=== PATIENT | female | born 2000 | race Caucasian/White ===

== ENCOUNTER 2025-07-28 06:07 | Inpatient (IN) ==
[2025-07-28] MEDS ORDERED: REGLAN INJ 10 MG VIAL IVP PRN (06:39)
[2025-07-28] MEDS ORDERED: NUBAIN INJ 20 MG AMP IVP PRN (06:39)
[2025-07-28] MEDS ORDERED: ZOFRAN INJ 4 MG VIAL IVP PRN (06:39)
[2025-07-28] MEDS: D5 1/2 NS 1,000 ML 1,000 ML IV SCH (06:45)
[2025-07-28] MEDS: OXYTOCIN 20 UNIT/1,000 ML-NS 20 UNIT/1,000 ML PLAST..BAG IV PRN (07:00)
--- NOTE | 2025-07-28 07:00 | DR.OB ---
OB QUICK NOTE Assessment/Plan (1) Elective induction of labor planned: Assessment/Plan: L&D 07/28/25 at 6:50am S-No complaint. O-Afebrile,VSS OVA=737 with good LTV, +accel, no decel. CTX=none CVX=3cm/75%/-1/VTX AROM with clear fluid. IUPC and FSE placed. A-IUP at 39 2/7 weeks for induction Rh- P-Begin pitocin induction F/U labs Anticipate
[2025-07-28] MEDS: LR 1,000 ML IV 1,000 ML IV ONE (09:14)
[2025-07-28] MEDS: NAROPIN EPIDURAL 0.2% 100 ML ONE (09:42)
[2025-07-28] MEDS: NS 1,000 ML IV 1,000 ML ONE (10:24)
[2025-07-28] MEDS ORDERED: NARCAN INJ ONE (10:48)
[2025-07-28] MEDS: NARCAN INJ IVP ONE (10:56)
[2025-07-28] MEDS: PITOCIN IVP ONE (12:51)
[2025-07-28] MEDS: OXYTOCIN 20 UNIT/1,000 ML-NS 20 UNIT/1,000 ML PLAST..BAG IV SCH (13:29)
[2025-07-28] MEDS: PITOCIN ONE (14:28)
[2025-07-28] MEDS: BETADINE SOLN ONE (14:29)
[2025-07-28] MEDS: D5 1/2 NS 1,000 ML 1,000 ML IV ONE (14:29)
[2025-07-28] MEDS: FENTANYL VIAL INJ 100 mcg ONE (14:29)
--- NOTE | 2025-07-28 14:41 | DR.OB ---
OB QUICK NOTE Assessment/Plan (1) Elective induction of labor planned: Assessment/Plan: Delivery Note REIMBURSEMENT LIAISON 07/28/25 at 12:47pm Patient complete and pushing. and mother both stable. Head delivered over intact perineum. No nuchal cord. Nose and mouth bulb suctioned. Body delivered over intact perineum. Cord clamped x 2 and cut. Infant handed to attendant. Cord sent for gases. Placenta delivered spontaneously / intact / 3 vessel cord. No CVX tears. A small midline second degree tear noted and repaired with 0-vicryl in usual fashion. Viable male delivered by , VTX/OA, wt=6'13" and 8/9, stable to NBN. Mother stable to RR. CAF=168ts.
[2025-07-28] MEDS ORDERED: MOTRIN TAB 800 MG PO PRN (14:58)
[2025-07-28] MEDS ORDERED: HYPERRHO S/D (or RHOGAM) IM PRN (14:58)
[2025-07-28] MEDS ORDERED: MILK OF MAGNESIA PO PRN (14:58)
[2025-07-28] MEDS ORDERED: AMBIEN PO PRN (14:58)
[2025-07-28] MEDS: ADACEL or BOOSTRIX TDaP VACCINE IM ONE (16:26)
[2025-07-28] MEDS: DERMOPLAST PAIN RELIEF SPRAY TOP PRN (16:51)
[2025-07-28] MEDS: COLACE CAP 100 MG PO PRN (17:15)
[2025-07-28] MEDS: MOTRIN TAB 800 MG PO PRN (19:01)
[2025-07-29 07:45] VITALS: O2SAT 100
[2025-07-29] MEDS: PRENATAL PLUS PO SCH (08:38)
[2025-07-29 11:33] VITALS: BP 125/66; PULSE 79; RESP 19; TEMP 97.1
[2025-07-29] MEDS ORDERED: FERROUS GLUCONATE PO SCH (17:00)
== END 2025-07-29 14:55 | disposition home or self-care (01) | DRG 807 ==
LOC: LD 06:07 → MED/SURG 14:16
PROVIDERS: ADMIT Specialist; ATTEND Specialist
DX: Z37.0 Single live birth; Z01.812 Encounter for preprocedural laboratory examination; Z3A.39 39 weeks gestation of pregnancy; O70.1 Second degree perineal laceration during delivery; N87.0 Mild cervical dysplasia; O99.891 Other specified diseases and conditions complicating pregnancy